=== PATIENT | female | born 1965 | race Asian ===

== ENCOUNTER 2021-07-18 16:20 | Emergency (ER) | payer OTHER ==
[~2021-07-18] VITALS: Ht 160 cm; Wt 81.6 kg
[~2021-07-18 16:20] MED LIST: AMLODIPINE BESYL5 MG PO
[2021-07-18] MEDS ORDERED: CASIRIVIMAB/IMDEVIMAB 10 ML in SODIUM CHLORIDE 0.9% 100 ML IV ONE (16:45)
[2021-07-18] MEDS ORDERED: ACETAMINOPHEN 325 MG TAB PO ONE (17:00)
== END 2021-07-18 18:30 | disposition home or self-care (01) ==
LOC: ER 17:09
DX: U07.1 COVID-19 (principal); R50.9 Fever, unspecified; R05.9 Cough, unspecified; I10 Essential (primary) hypertension
CPT/HCPCS: 99283; J7050

== ENCOUNTER → 2022-08-03 | Day surgery (SDC) | payer OTHER ==
[~2022-08-03] MED LIST changes: +DIPHENHYDRAMINE HCL INJ 50 MG/ML VIAL ONE; +FENTANYL CITRATE/PF 100MCG/2 ML INJ ONE; +HYOSCYAMINE SULFATE 0.5 MG/ML INJ ONE; +LIDOCAINE HCL 2% LOCAL INJ 5 ML SDV VIAL INJ ONE; +PROPOFOL IV EMULSION 10 MG/ML 20 ML VIAL ONE; +PROPOFOL IV EMULSION 10 MG/ML 50 ML VIAL IV ONE
[2022-08-03 12:32] VITALS: BP 127/87
== END | disposition home or self-care (01) ==
LOC: OR 07:34
PROVIDERS: ATTEND Internal Medicine Gastroenterology
DX: Z12.11 Encounter for screening for malignant neoplasm of colon (principal); Z86.010 Personal history of colon polyps; K31.7 Polyp of stomach and duodenum; K29.50 Unspecified chronic gastritis without bleeding; K21.00 Gastro-esophageal reflux disease with esophagitis, without bleeding; K31.89 Other diseases of stomach and duodenum; K64.8 Other hemorrhoids; I10 Essential (primary) hypertension; Z79.899 Other long term (current) drug therapy; Z68.32 Body mass index [BMI] 32.0-32.9, adult; Z80.0 Family history of malignant neoplasm of digestive organs
CPT/HCPCS: 43239; 45378; 93005; C9113; J1200; J1980; J2001; J2704 ×2; J3010